=== PATIENT | female | born 2000 | race Caucasian/White ===

== ENCOUNTER 2023-11-16 02:51 | Emergency (ER) | payer MEDICAID ==
[2023-11-16 03:32] LABS: APPEARANCE,URINE CLEAR (CLEAR); BILIRUBIN,URINE NEGATIVE (NEGATIVE); COLOR,URINE YELLOW (YELLOW); GLUCOSE,URINE 500 mg/dL (NEGATIVE); KETONES,URINE TRACE mg/dL (NEGATIVE); LEUKOCYTE ESTERASE,URINE NEGATIVE (NEGATIVE); NITRITE,URINE NEGATIVE (NEGATIVE); OCCULT BLOOD,URINE TRACE-INTACT (NEGATIVE); PH,URINE 7.5 (5.0-8.0); PROTEIN,URINE NEGATIVE (NEGATIVE); UROBILINOGEN,URINE 0.2 EU/dL (0.2-1.0)
[2023-11-16 03:46] LABS: AMORPHOUS SEDIMENT,URINE FEW; BACTERIA,URINE FEW; EPITHELIAL CELLS,URINE FEW; MUCUS,URINE NOT SEEN; RBC,URINE 0-5 (0-5); WBC,URINE 0-5 (0-5)
== END 2023-11-16 04:22 | disposition home or self-care (01) ==
LOC: JP.ED 02:51
DX: O26.851 Spotting complicating pregnancy, first trimester (principal); O99.331 Smoking (tobacco) complicating pregnancy, first trimester; F17.210 Nicotine dependence, cigarettes, uncomplicated; O24.911 Unspecified diabetes mellitus in pregnancy, first trimester; Z79.4 Long term (current) use of insulin; Z3A.00 Weeks of gestation of pregnancy not specified; Z88.7 Allergy status to serum and vaccine
CPT/HCPCS: 81001; 81025; 87086; 99284

== ENCOUNTER 2023-11-16 21:32 | Emergency (ER) | payer MEDICAID ==
[2023-11-16 22:34] LABS: BASOPHILS ABSOLUTE AUTO 0.06 K/uL (0.00-0.10); BASOPHILS PERCENT AUTO 0.8 % (0.1-1.3); EOSINOPHILS ABSOLUTE AUTO 0.17 K/uL (0.00-0.40); EOSINOPHILS PERCENT AUTO 2.2 % (0.0-5.4); HEMATOCRIT 40.4 % (34.3-46.0); HEMOGLOBIN 13.8 g/dL (11.2-15.5); IMMATURE GRAN PERCENT AUTO 0.1 % (0.0-0.7); LYMPHOCYTES PERCENT AUTO 28.3 % (11.4-47.7); MEAN CORPUSCULAR HEMOGLOBIN 29.1 pg (31.6-35.5); MEAN CORPUSCULAR HGB CONC 34.2 g/dL (31.6-35.5); MEAN CORPUSCULAR VOLUME 85.1 fL (81.4-99.0); MONOCYTES ABSOLUTE AUTO 0.35 K/uL (0.20-0.90); MONOCYTES PERCENT AUTO 4.5 % (3.3-12.6); NEUTROPHILS ABSOLUTE AUTO 4.99 K/uL (1.0-7.6); NEUTROPHILS PERCENT AUTO 64.1 % (40.0-78.1); PLATELET COUNT,PLT 331 K/uL (130-375); RED BLOOD CELL COUNT 4.75 M/uL (3.77-5.24); WHITE BLOOD CELL COUNT,WBC 7.8 K/uL (3.2-11.0)
[2023-11-16 22:36] LABS: IMMATURE GRAN ABSOLUTE AUTO 0.01 K/uL (0.00-0.23)
== END 2023-11-16 23:34 | disposition home or self-care (01) ==
LOC: JP.ED 21:32
DX: O03.4 Incomplete spontaneous abortion without complication (principal); F17.210 Nicotine dependence, cigarettes, uncomplicated; Z88.7 Allergy status to serum and vaccine; Z79.4 Long term (current) use of insulin
CPT/HCPCS: 36415; 84702; 85025; 99284

== ENCOUNTER 2024-01-13 03:41 | Emergency (ER) | payer MEDICAID ==
[2024-01-13] MEDS: Benzonatate 100 MG Cap PO ONE (04:22)
[2024-01-13] MEDS: Ibuprofen 600 MG Tab PO ONE (04:23)
[2024-01-13] MEDS: Albuterol 0.083% 2.5 MG/3 ML Neb Soln NEB ONE (04:23)
[2024-01-13 04:25] LABS: BASOPHILS ABSOLUTE AUTO 0.04 K/uL (0.00-0.10); BASOPHILS PERCENT AUTO 0.8 % (0.1-1.3); EOSINOPHILS ABSOLUTE AUTO 0.23 K/uL (0.00-0.40); EOSINOPHILS PERCENT AUTO 4.7 % (0.0-5.4); HEMATOCRIT 36.8 % (34.3-46.0); HEMOGLOBIN 12.5 g/dL (11.2-15.5); IMMATURE GRAN ABSOLUTE AUTO 0.01 K/uL (0.00-0.23); IMMATURE GRAN PERCENT AUTO 0.2 % (0.0-0.7); LYMPHOCYTES ABSOLUTE AUTO 1.38 K/uL (0.8-3.3); LYMPHOCYTES PERCENT AUTO 28.5 % (11.4-47.7); MEAN CORPUSCULAR HEMOGLOBIN 29.5 pg (31.6-35.5); MEAN CORPUSCULAR VOLUME 86.8 fL (81.4-99.0); MONOCYTES ABSOLUTE AUTO 0.44 K/uL (0.20-0.90); MONOCYTES PERCENT AUTO 9.1 % (3.3-12.6); NEUTROPHILS ABSOLUTE AUTO 2.75 K/uL (1.0-7.6); NEUTROPHILS PERCENT AUTO 56.7 % (40.0-78.1); PLATELET COUNT,PLT 269 K/uL (130-375); RED BLOOD CELL COUNT 4.24 M/uL (3.77-5.24); WHITE BLOOD CELL COUNT,WBC 4.9 K/uL (3.2-11.0)
== END 2024-01-13 04:51 | disposition home or self-care (01) ==
LOC: JP.ED 03:41
DX: J98.01 Acute bronchospasm (principal); H66.93 Otitis media, unspecified, bilateral; B34.8 Other viral infections of unspecified site; E10.9 Type 1 diabetes mellitus without complications; F17.210 Nicotine dependence, cigarettes, uncomplicated; Z88.8 Allergy status to other drugs, medicaments and biological substances; Z79.4 Long term (current) use of insulin
CPT/HCPCS: 36415; 85025; 94640; 99285; A9270; 99283

== ENCOUNTER 2024-02-29 21:52 | Emergency (ER) | payer MEDICAID ==
[2024-02-29 22:44] LABS: BASOPHILS ABSOLUTE AUTO 0.08 K/uL (0.00-0.10); EOSINOPHILS ABSOLUTE AUTO 0.25 K/uL (0.00-0.40); HEMATOCRIT 34.7 % (34.3-46.0); HEMOGLOBIN 11.9 g/dL (11.2-15.5); IMMATURE GRAN PERCENT AUTO 0.2 % (0.0-0.7); LYMPHOCYTES ABSOLUTE AUTO 2.51 K/uL (0.8-3.3); LYMPHOCYTES PERCENT AUTO 29.8 % (11.4-47.7); MEAN CORPUSCULAR HGB CONC 34.3 g/dL (31.6-35.5); MEAN CORPUSCULAR VOLUME 87.4 fL (81.4-99.0); MONOCYTES ABSOLUTE AUTO 0.53 K/uL (0.20-0.90); MONOCYTES PERCENT AUTO 6.3 % (3.3-12.6); NEUTROPHILS ABSOLUTE AUTO 5.02 K/uL (1.0-7.6); NEUTROPHILS PERCENT AUTO 59.7 % (40.0-78.1); PLATELET COUNT,PLT 303 K/uL (130-375); RED BLOOD CELL COUNT 3.97 M/uL (3.77-5.24); WHITE BLOOD CELL COUNT,WBC 8.4 K/uL (3.2-11.0)
[2024-02-29 22:51] LABS: IMMATURE GRAN ABSOLUTE AUTO 0.02 K/uL (0.00-0.23)
[2024-02-29 22:55] LABS: CALCIUM 8.8 mg/dL (8.5-10.1); CREATININE 0.8 mg/dL (0.6-1.0); EST CRCL DRUG DOSING (CG) 102.39 mL/min; POTASSIUM,K 4.4 mmol/L (3.6-5.2)
[2024-02-29 23:02] LABS: ANION GAP 17.4 mmol/L (5.0-14.0)
== END 2024-02-29 23:37 | disposition home or self-care (01) ==
LOC: JP.ED 21:52
DX: T85.614A Breakdown (mechanical) of insulin pump, initial encounter (principal); E10.9 Type 1 diabetes mellitus without complications; Z79.4 Long term (current) use of insulin; Z88.7 Allergy status to serum and vaccine
CPT/HCPCS: 36415; 80048; 82009; 85025; 99283

== ENCOUNTER 2024-07-27 18:21 | Emergency (ER) | payer MEDICAID ==
[2024-07-27 18:59] LABS: BASOPHILS ABSOLUTE AUTO 0.05 K/uL (0.00-0.10); BASOPHILS PERCENT AUTO 0.7 % (0.1-1.3); EOSINOPHILS ABSOLUTE AUTO 0.19 K/uL (0.00-0.40); EOSINOPHILS PERCENT AUTO 2.6 % (0.0-5.4); HEMATOCRIT 30.6 % (34.3-46.0); HEMOGLOBIN 11.2 g/dL (11.2-15.5); IMMATURE GRAN PERCENT AUTO 0.3 % (0.0-0.7); LYMPHOCYTES ABSOLUTE AUTO 2.31 K/uL (0.8-3.3); LYMPHOCYTES PERCENT AUTO 31.7 % (11.4-47.7); MEAN CORPUSCULAR HEMOGLOBIN 30.2 pg (31.6-35.5); MEAN CORPUSCULAR HGB CONC 36.6 g/dL (31.6-35.5); MEAN CORPUSCULAR VOLUME 82.5 fL (81.4-99.0); MONOCYTES ABSOLUTE AUTO 0.37 K/uL (0.20-0.90); MONOCYTES PERCENT AUTO 5.1 % (3.3-12.6); NEUTROPHILS ABSOLUTE AUTO 4.35 K/uL (1.0-7.6); NEUTROPHILS PERCENT AUTO 59.6 % (40.0-78.1); PLATELET COUNT,PLT 277 K/uL (130-375); RED BLOOD CELL COUNT 3.71 M/uL (3.77-5.24); WHITE BLOOD CELL COUNT,WBC 7.3 K/uL (3.2-11.0)
[2024-07-27 19:02] LABS: IMMATURE GRAN ABSOLUTE AUTO 0.02 K/uL (0.00-0.23)
[2024-07-27] MEDS: Ondansetron 4 MG Tab.DIS PO ONE (19:04)
[2024-07-27 19:26] LABS: A/G RATIO 0.8 (1.2-2.2); ALANINE AMINOTRANSFERASE,ALT 23 U/L (12-78); ALBUMIN 3.2 g/dL (3.4-5.0); ALKALINE PHOSPHATASE 68 U/L (46-116); ANION GAP 11.1 mmol/L (5.0-14.0); ASPARTATE AMNIOTRANSFERASE,AST 16 U/L (15-37); BILIRUBIN TOTAL 0.3 mg/dL (0.2-1.0); BLOOD UREA NITROGEN,BUN 6 mg/dL (7-18); CARBON DIOXIDE,CO2 24 mmol/L (21-32); CHLORIDE,CL 105 mmol/L (100-108); CREATININE 0.8 mg/dL (0.6-1.0); EST CRCL DRUG DOSING (CG) 97.57 mL/min; ESTIMATED GFR 105 mL/min (>60); GLUCOSE RANDOM 133 mg/dL (74-106); SODIUM,NA 140 mmol/L (140-148)
[2024-07-27 19:41] LABS: BILIRUBIN,URINE NEGATIVE (NEGATIVE); COLOR,URINE YELLOW (YELLOW); GLUCOSE,URINE 100 mg/dL (NEGATIVE); KETONES,URINE NEGATIVE (NEGATIVE); LEUKOCYTE ESTERASE,URINE SMALL (NEGATIVE); NITRITE,URINE NEGATIVE (NEGATIVE); OCCULT BLOOD,URINE MODERATE (NEGATIVE); PROTEIN,URINE 100 mg/dL (NEGATIVE)
[2024-07-27 19:52] LABS: AMORPHOUS SEDIMENT,URINE NOT SEEN; APPEARANCE,URINE CLOUDY (CLEAR); BACTERIA,URINE MANY; EPITHELIAL CELLS,URINE FEW; MUCUS,URINE NOT SEEN
== END 2024-07-27 20:20 | disposition home or self-care (01) ==
LOC: JP.ED 18:21
DX: E86.0 Dehydration (principal); E10.649 Type 1 diabetes mellitus with hypoglycemia without coma; Z79.4 Long term (current) use of insulin; Z88.7 Allergy status to serum and vaccine
CPT/HCPCS: 36415; 80053; 81001; 82947; 85025; 87086; 99283; 99284; Q0162

== ENCOUNTER 2024-08-07 10:30 | Emergency (ER) | payer MEDICAID ==
[2024-08-07] MEDS: Acetaminophen 325 MG Tab PO ONE (12:37)
[2024-08-07 12:41] LABS: CORONAVIRUS COVID-19 NAA NEGATIVE (NEGATIVE); INFLUENZA A NAA NEGATIVE (NEGATIVE); INFLUENZA B NAA NEGATIVE (NEGATIVE); RESPIRATORY SYNCYTIAL VIR NAA NEGATIVE (NEGATIVE)
== END 2024-08-07 13:19 | disposition home or self-care (01) ==
LOC: JP.ED 10:30
DX: J06.9 Acute upper respiratory infection, unspecified (principal); E10.9 Type 1 diabetes mellitus without complications; Z79.899 Other long term (current) drug therapy; Z88.7 Allergy status to serum and vaccine
CPT/HCPCS: 0241U; 87651; 99284; A9270

== ENCOUNTER 2024-09-02 02:13 | Emergency (ER) | payer MEDICAID ==
[2024-09-02] MEDS: 50% Dextrose in Water 50 ML Syringe IVPUSH ONE (02:26)
[2024-09-02] MEDS: 50% Dextrose in Water 50 ML Syringe ONE (02:31)
[2024-09-02 02:48] LABS: BASOPHILS ABSOLUTE AUTO 0.05 K/uL (0.00-0.10); BASOPHILS PERCENT AUTO 0.7 % (0.1-1.3); EOSINOPHILS ABSOLUTE AUTO 0.25 K/uL (0.00-0.40); EOSINOPHILS PERCENT AUTO 3.3 % (0.0-5.4); HEMATOCRIT 29.7 % (34.3-46.0); HEMOGLOBIN 10.6 g/dL (11.2-15.5); IMMATURE GRAN PERCENT AUTO 0.1 % (0.0-0.7); LYMPHOCYTES ABSOLUTE AUTO 2.37 K/uL (0.8-3.3); MEAN CORPUSCULAR HEMOGLOBIN 29.7 pg (31.6-35.5); MEAN CORPUSCULAR HGB CONC 35.7 g/dL (31.6-35.5); MEAN CORPUSCULAR VOLUME 83.2 fL (81.4-99.0); MONOCYTES ABSOLUTE AUTO 0.44 K/uL (0.20-0.90); MONOCYTES PERCENT AUTO 5.8 % (3.3-12.6); NEUTROPHILS ABSOLUTE AUTO 4.53 K/uL (1.0-7.6); NEUTROPHILS PERCENT AUTO 59.1 % (40.0-78.1); PLATELET COUNT,PLT 240 K/uL (130-375); RED BLOOD CELL COUNT 3.57 M/uL (3.77-5.24); WHITE BLOOD CELL COUNT,WBC 7.7 K/uL (3.2-11.0)
[2024-09-02 02:50] LABS: IMMATURE GRAN ABSOLUTE AUTO 0.01 K/uL (0.00-0.23)
[2024-09-02 03:04] LABS: CALCIUM 9.1 mg/dL (8.5-10.1); CREATININE 0.6 mg/dL (0.6-1.0); EST CRCL DRUG DOSING (CG) 135.35 mL/min; POTASSIUM,K 3.5 mmol/L (3.6-5.2)
[2024-09-02 03:06] LABS: ANION GAP 15.5 mmol/L (5.0-14.0)
[2024-09-02] MEDS: Ibuprofen 400 MG Tab PO ONE (03:30)
== END 2024-09-02 05:25 | disposition home or self-care (01) ==
LOC: JP.ED 02:13
DX: O24.414 Gestational diabetes mellitus in pregnancy, insulin controlled (principal); E10.649 Type 1 diabetes mellitus with hypoglycemia without coma; Z3A.13 13 weeks gestation of pregnancy; Z86.16 Personal history of COVID-19; Z79.4 Long term (current) use of insulin; Z79.899 Other long term (current) drug therapy; Z88.7 Allergy status to serum and vaccine
CPT/HCPCS: 36415; 80048; 82947; 85025; 96374; 99285; A9270

== ENCOUNTER 2024-09-13 16:25 | Emergency (ER) | payer MEDICAID | END 2024-09-13 17:56 | disposition home or self-care (01) | LOC: JP.ED 16:25 | DX: E10.649 Type 1 diabetes mellitus with hypoglycemia without coma (principal); Z86.16 Personal history of COVID-19; Z88.7 Allergy status to serum and vaccine; Z79.4 Long term (current) use of insulin | CPT/HCPCS: 82947; 99284 ==

== ENCOUNTER 2024-10-21 21:44 | Emergency (ER) | payer MEDICAID ==
[2024-10-21 22:04] LABS: BASOPHILS ABSOLUTE AUTO 0.05 K/uL (0.00-0.10); BASOPHILS PERCENT AUTO 0.4 % (0.1-1.3); EOSINOPHILS ABSOLUTE AUTO 0.23 K/uL (0.00-0.40); HEMATOCRIT 30.5 % (34.3-46.0); HEMOGLOBIN 10.7 g/dL (11.2-15.5); IMMATURE GRAN ABSOLUTE AUTO 0.05 K/uL (0.00-0.23); IMMATURE GRAN PERCENT AUTO 0.4 % (0.0-0.7); LYMPHOCYTES ABSOLUTE AUTO 2.08 K/uL (0.8-3.3); LYMPHOCYTES PERCENT AUTO 18.5 % (11.4-47.7); MEAN CORPUSCULAR HEMOGLOBIN 30.6 pg (31.6-35.5); MEAN CORPUSCULAR HGB CONC 35.1 g/dL (31.6-35.5); MEAN CORPUSCULAR VOLUME 87.1 fL (81.4-99.0); MONOCYTES ABSOLUTE AUTO 0.51 K/uL (0.20-0.90); MONOCYTES PERCENT AUTO 4.5 % (3.3-12.6); NEUTROPHILS ABSOLUTE AUTO 8.31 K/uL (1.0-7.6); NEUTROPHILS PERCENT AUTO 74.2 % (40.0-78.1); PLATELET COUNT,PLT 255 K/uL (130-375); WHITE BLOOD CELL COUNT,WBC 11.2 K/uL (3.2-11.0)
[2024-10-21 22:18] LABS: CALCIUM 8.8 mg/dL (8.5-10.1); CREATININE 0.6 mg/dL (0.6-1.0); EST CRCL DRUG DOSING (CG) 135.35 mL/min; POTASSIUM,K 3.5 mmol/L (3.6-5.2)
[2024-10-21 22:20] LABS: ANION GAP 13.5 mmol/L (5.0-14.0)
[2024-10-21 23:11] LABS: APPEARANCE,URINE CLEAR (CLEAR); BILIRUBIN,URINE NEGATIVE (NEGATIVE); COLOR,URINE YELLOW (YELLOW); GLUCOSE,URINE 500 mg/dL (NEGATIVE); KETONES,URINE NEGATIVE (NEGATIVE); LEUKOCYTE ESTERASE,URINE NEGATIVE (NEGATIVE); NITRITE,URINE NEGATIVE (NEGATIVE); OCCULT BLOOD,URINE SMALL (NEGATIVE); PH,URINE 5.5 (5.0-8.0); PROTEIN,URINE 100 mg/dL (NEGATIVE); UROBILINOGEN,URINE 0.2 EU/dL (0.2-1.0)
[2024-10-21] MEDS: Prochlorperazine 10 MG/2 ML SDV IM ONE (23:11)
[2024-10-21] MEDS: diphenhydrAMINE 50 MG/ML SDV IM ONE (23:16)
== END 2024-10-21 23:45 | disposition home or self-care (01) ==
LOC: JP.ED 21:44
DX: E10.9 Type 1 diabetes mellitus without complications (principal); R10.2 Pelvic and perineal pain; Z86.16 Personal history of COVID-19; Z87.891 Personal history of nicotine dependence; Z88.7 Allergy status to serum and vaccine; Z91.048 Other nonmedicinal substance allergy status; Z79.4 Long term (current) use of insulin; Z79.899 Other long term (current) drug therapy
CPT/HCPCS: 36415; 80048; 81003; 85025; 87210; 96372; 99284; J0780

== ENCOUNTER 2024-10-23 17:17 | Emergency (ER) | payer MEDICAID ==
[2024-10-23] MEDS: 50% Dextrose in Water 50 ML Syringe IVPUSH ONE (17:50)
[2024-10-23 17:51] LABS: BASOPHILS ABSOLUTE AUTO 0.07 K/uL (0.00-0.10); BASOPHILS PERCENT AUTO 0.6 % (0.1-1.3); EOSINOPHILS ABSOLUTE AUTO 0.36 K/uL (0.00-0.40); EOSINOPHILS PERCENT AUTO 3.1 % (0.0-5.4); HEMATOCRIT 32.8 % (34.3-46.0); HEMOGLOBIN 11.5 g/dL (11.2-15.5); IMMATURE GRAN ABSOLUTE AUTO 0.06 K/uL (0.00-0.23); IMMATURE GRAN PERCENT AUTO 0.5 % (0.0-0.7); LYMPHOCYTES ABSOLUTE AUTO 2.81 K/uL (0.8-3.3); LYMPHOCYTES PERCENT AUTO 24.4 % (11.4-47.7); MEAN CORPUSCULAR HEMOGLOBIN 30.7 pg (31.6-35.5); MEAN CORPUSCULAR HGB CONC 35.1 g/dL (31.6-35.5); MEAN CORPUSCULAR VOLUME 87.5 fL (81.4-99.0); MONOCYTES ABSOLUTE AUTO 0.69 K/uL (0.20-0.90); NEUTROPHILS ABSOLUTE AUTO 7.51 K/uL (1.0-7.6); NEUTROPHILS PERCENT AUTO 65.4 % (40.0-78.1); PLATELET COUNT,PLT 340 K/uL (130-375); RED BLOOD CELL COUNT 3.75 M/uL (3.77-5.24); WHITE BLOOD CELL COUNT,WBC 11.5 K/uL (3.2-11.0)
[2024-10-23 17:57] LABS: CALCIUM 9.1 mg/dL (8.5-10.1); CREATININE 0.9 mg/dL (0.6-1.0); EST CRCL DRUG DOSING (CG) 90.23 mL/min; POTASSIUM,K 3.5 mmol/L (3.6-5.2)
[2024-10-23 17:59] LABS: ANION GAP 15.5 mmol/L (5.0-14.0)
[2024-10-23] MEDS: Insulin Isophane NPH, Human 100 Units/ML 10 ML Vial SUBCUT ONE (19:02)
[2024-10-23] MEDS: Insulin Isophane NPH, Human 100 Units/ML 3 ML Vial ONE (19:03)
[2024-10-24] MEDS ORDERED: Insulin Isophane NPH, Human 100 Units/ML 10 ML Vial SUBCUT ONE (18:34)
== END 2024-10-23 20:40 | disposition home or self-care (01) ==
LOC: JP.ED 17:17
DX: O24.419 Gestational diabetes mellitus in pregnancy, unspecified control (principal); E16.2 Hypoglycemia, unspecified; O99.332 Smoking (tobacco) complicating pregnancy, second trimester; F17.210 Nicotine dependence, cigarettes, uncomplicated; Z88.7 Allergy status to serum and vaccine; Z91.048 Other nonmedicinal substance allergy status; Z3A.20 20 weeks gestation of pregnancy
CPT/HCPCS: 36415; 80048; 82947; 85025; 96374; 99284; J1815

== ENCOUNTER 2024-12-12 20:45 | Emergency (ER) | payer MEDICAID | END 2024-12-12 22:31 | disposition home or self-care (01) | LOC: JP.ED 20:45 | DX: O99.513 Diseases of the respiratory system complicating pregnancy, third trimester (principal); J06.9 Acute upper respiratory infection, unspecified; O24.013 Pre-existing type 1 diabetes mellitus, in pregnancy, third trimester; E10.9 Type 1 diabetes mellitus without complications; Z3A.28 28 weeks gestation of pregnancy; Z91.048 Other nonmedicinal substance allergy status; Z88.7 Allergy status to serum and vaccine; Z79.4 Long term (current) use of insulin; Z79.899 Other long term (current) drug therapy | CPT/HCPCS: 87428-QW; 99284 ==

== ENCOUNTER 2024-12-13 14:23 | Emergency (ER) | payer MEDICAID ==
[2024-12-13 15:40] LABS: BASOPHILS ABSOLUTE AUTO 0.04 K/uL (0.00-0.10); BASOPHILS PERCENT AUTO 0.4 % (0.1-1.3); HEMATOCRIT 34.2 % (34.3-46.0); IMMATURE GRAN ABSOLUTE AUTO 0.06 K/uL (0.00-0.23); IMMATURE GRAN PERCENT AUTO 0.6 % (0.0-0.7); LYMPHOCYTES ABSOLUTE AUTO 1.35 K/uL (0.8-3.3); LYMPHOCYTES PERCENT AUTO 12.9 % (11.4-47.7); MEAN CORPUSCULAR HEMOGLOBIN 31.3 pg (31.6-35.5); MEAN CORPUSCULAR HGB CONC 35.1 g/dL (31.6-35.5); MEAN CORPUSCULAR VOLUME 89.1 fL (81.4-99.0); MONOCYTES ABSOLUTE AUTO 0.54 K/uL (0.20-0.90); MONOCYTES PERCENT AUTO 5.2 % (3.3-12.6); NEUTROPHILS ABSOLUTE AUTO 8.39 K/uL (1.0-7.6); NEUTROPHILS PERCENT AUTO 79.9 % (40.0-78.1); PLATELET COUNT,PLT 280 K/uL (130-375); RED BLOOD CELL COUNT 3.84 M/uL (3.77-5.24); WHITE BLOOD CELL COUNT,WBC 10.5 K/uL (3.2-11.0)
[2024-12-13] MEDS: Sodium Chloride 0.9% 1,000 ML IV ONE (15:46)
[2024-12-13 16:01] LABS: A/G RATIO 0.6 (1.2-2.2); ALANINE AMINOTRANSFERASE,ALT 29 U/L (12-78); ALBUMIN 2.8 g/dL (3.4-5.0); ALKALINE PHOSPHATASE 95 U/L (46-116); ASPARTATE AMNIOTRANSFERASE,AST 23 U/L (15-37); BILIRUBIN TOTAL 0.4 mg/dL (0.2-1.0); BLOOD UREA NITROGEN,BUN 9 mg/dL (7-18); CALCIUM 9.2 mg/dL (8.5-10.1); CARBON DIOXIDE,CO2 21 mmol/L (21-32); CHLORIDE,CL 100 mmol/L (100-108); EST CRCL DRUG DOSING (CG) 81.21 mL/min; ESTIMATED GFR 81 mL/min (>60); GLUCOSE RANDOM 270 mg/dL (74-106); POTASSIUM,K 3.5 mmol/L (3.6-5.2); PROTEIN TOTAL,TP 7.6 g/dL (6.4-8.2); SODIUM,NA 136 mmol/L (140-148)
[2024-12-13 16:11] LABS: ANION GAP 18.5 mmol/L (5.0-14.0)
[2024-12-13 16:18] LABS: CORONAVIRUS COVID-19 NAA NEGATIVE (NEGATIVE); INFLUENZA A NAA NEGATIVE (NEGATIVE); INFLUENZA B NAA NEGATIVE (NEGATIVE); RESPIRATORY SYNCYTIAL VIR NAA NEGATIVE (NEGATIVE)
[2024-12-13] MEDS: Codeine/guaiFENesin 10-100 MG/5 ML Syrup 5 ML Cup PO ONE (17:32)
[2024-12-13] MEDS: Benzonatate 100 MG Cap PO ONE (17:32)
== END 2024-12-13 17:41 | disposition home or self-care (01) ==
LOC: JP.ED 14:23
DX: E86.0 Dehydration (principal); J40 Bronchitis, not specified as acute or chronic; E10.9 Type 1 diabetes mellitus without complications; F17.210 Nicotine dependence, cigarettes, uncomplicated; Z91.048 Other nonmedicinal substance allergy status; Z79.4 Long term (current) use of insulin; Z79.82 Long term (current) use of aspirin; Z79.899 Other long term (current) drug therapy
CPT/HCPCS: 0241U; 36415; 80053; 85025; 96360; 99284; A9270; J7030

== ENCOUNTER 2024-12-17 17:17 | Emergency (ER) | payer MEDICAID ==
[2024-12-17 18:00] LABS: BASOPHILS PERCENT AUTO 0.3 % (0.1-1.3); EOSINOPHILS ABSOLUTE AUTO 0.16 K/uL (0.00-0.40); EOSINOPHILS PERCENT AUTO 2.5 % (0.0-5.4); HEMATOCRIT 33.8 % (34.3-46.0); HEMOGLOBIN 11.2 g/dL (11.2-15.5); IMMATURE GRAN ABSOLUTE AUTO 0.03 K/uL (0.00-0.23); IMMATURE GRAN PERCENT AUTO 0.5 % (0.0-0.7); LYMPHOCYTES ABSOLUTE AUTO 1.16 K/uL (0.8-3.3); LYMPHOCYTES PERCENT AUTO 18.1 % (11.4-47.7); MEAN CORPUSCULAR HEMOGLOBIN 30.9 pg (31.6-35.5); MEAN CORPUSCULAR HGB CONC 33.1 g/dL (31.6-35.5); MEAN CORPUSCULAR VOLUME 93.4 fL (81.4-99.0); MONOCYTES ABSOLUTE AUTO 0.44 K/uL (0.20-0.90); MONOCYTES PERCENT AUTO 6.9 % (3.3-12.6); NEUTROPHILS ABSOLUTE AUTO 4.61 K/uL (1.0-7.6); NEUTROPHILS PERCENT AUTO 71.7 % (40.0-78.1); PLATELET COUNT,PLT 223 K/uL (130-375); RED BLOOD CELL COUNT 3.62 M/uL (3.77-5.24); WHITE BLOOD CELL COUNT,WBC 6.4 K/uL (3.2-11.0)
[2024-12-17] MEDS: Sodium Chloride 0.9% 1,000 ML IV ONE ×2 (18:00→19:05)
[2024-12-17 18:01] LABS: BASOPHILS ABSOLUTE AUTO 0.02 K/uL (0.00-0.10)
[2024-12-17 18:03] LABS: APPEARANCE,URINE CLEAR (CLEAR); BILIRUBIN,URINE NEGATIVE (NEGATIVE); COLOR,URINE YELLOW (YELLOW); GLUCOSE,URINE 500 mg/dL (NEGATIVE); KETONES,URINE 80 mg/dL (NEGATIVE); LEUKOCYTE ESTERASE,URINE NEGATIVE (NEGATIVE); NITRITE,URINE NEGATIVE (NEGATIVE); OCCULT BLOOD,URINE TRACE-INTACT (NEGATIVE); PROTEIN,URINE NEGATIVE (NEGATIVE); UROBILINOGEN,URINE 0.2 EU/dL (0.2-1.0)
[2024-12-17 18:13] LABS: AMORPHOUS SEDIMENT,URINE NOT SEEN; BACTERIA,URINE RARE; EPITHELIAL CELLS,URINE FEW; MUCUS,URINE NOT SEEN; RBC,URINE 0-5 (0-5); WBC,URINE 0-5 (0-5)
[2024-12-17 18:22] LABS: A/G RATIO 0.6 (1.2-2.2); ALANINE AMINOTRANSFERASE,ALT 69 U/L (12-78); ALBUMIN 2.9 g/dL (3.4-5.0); ALKALINE PHOSPHATASE 113 U/L (46-116); ASPARTATE AMNIOTRANSFERASE,AST 101 U/L (15-37); BILIRUBIN TOTAL 0.6 mg/dL (0.2-1.0); BLOOD UREA NITROGEN,BUN 7 mg/dL (7-18); CALCIUM 8.4 mg/dL (8.5-10.1); CARBON DIOXIDE,CO2 22 mmol/L (21-32); CHLORIDE,CL 95 mmol/L (100-108); CREATININE 0.9 mg/dL (0.6-1.0); EST CRCL DRUG DOSING (CG) 86.73 mL/min; ESTIMATED GFR 92 mL/min (>60); POTASSIUM,K 3.4 mmol/L (3.6-5.2); PROTEIN TOTAL,TP 7.4 g/dL (6.4-8.2); SODIUM,NA 131 mmol/L (140-148)
[2024-12-17 18:24] LABS: ANION GAP 17.4 mmol/L (5.0-14.0); GLUCOSE RANDOM 532 mg/dL (74-106)
[2024-12-17] MEDS: Cyclobenzaprine 10 MG Tab PO ONE (18:26)
[2024-12-17] MEDS: Acetaminophen 500 MG Tab PO ONE (18:26)
[2024-12-17] MEDS ORDERED: 50% Dextrose in Water 50 ML Syringe IVPUSH PRN (18:29)
[2024-12-17] MEDS ORDERED: Glucagon,Human Recombinant 1 MG Vial IM PRN (18:29)
[2024-12-17] MEDS: Terbutaline 1 MG/ML SDV SUBCUT ONE (18:35)
[2024-12-17] MEDS: Insulin Regular, Human 100 Units/ML 3 ML Vial IVPUSH ONE (18:40)
[2024-12-17] MEDS: cefTRIAXone 1 GM in Sodium Chloride 0.9% 50 ML IV ONE (19:07)
== END 2024-12-17 19:20 ==
LOC: JP.ED 17:17
DX: O99.283 Endocrine, nutritional and metabolic diseases complicating pregnancy, third trimester (principal); O60.03 Preterm labor without delivery, third trimester; O24.913 Unspecified diabetes mellitus in pregnancy, third trimester; E10.65 Type 1 diabetes mellitus with hyperglycemia; Z88.7 Allergy status to serum and vaccine; Z91.048 Other nonmedicinal substance allergy status; Z79.4 Long term (current) use of insulin; Z79.899 Other long term (current) drug therapy; Z3A.28 28 weeks gestation of pregnancy
CPT/HCPCS: 36415; 80053; 81001; 82731; 82947; 85025; 85379; 96360; 96361; 96372; 99285; J1815; J7030

== ENCOUNTER 2024-12-19 17:37 | Emergency (ER) | payer MEDICAID ==
[2024-12-19 18:12] LABS: BASOPHILS PERCENT AUTO 0.2 % (0.1-1.3); EOSINOPHILS ABSOLUTE AUTO 0.22 K/uL (0.00-0.40); EOSINOPHILS PERCENT AUTO 2.3 % (0.0-5.4); HEMATOCRIT 33.2 % (34.3-46.0); HEMOGLOBIN 11.3 g/dL (11.2-15.5); IMMATURE GRAN ABSOLUTE AUTO 0.03 K/uL (0.00-0.23); IMMATURE GRAN PERCENT AUTO 0.3 % (0.0-0.7); LYMPHOCYTES ABSOLUTE AUTO 1.67 K/uL (0.8-3.3); LYMPHOCYTES PERCENT AUTO 17.5 % (11.4-47.7); MEAN CORPUSCULAR HEMOGLOBIN 31.3 pg (31.6-35.5); MONOCYTES ABSOLUTE AUTO 0.55 K/uL (0.20-0.90); MONOCYTES PERCENT AUTO 5.7 % (3.3-12.6); NEUTROPHILS ABSOLUTE AUTO 7.08 K/uL (1.0-7.6); PLATELET COUNT,PLT 268 K/uL (130-375); RED BLOOD CELL COUNT 3.61 M/uL (3.77-5.24); WHITE BLOOD CELL COUNT,WBC 9.6 K/uL (3.2-11.0)
[2024-12-19] MEDS: Sodium Chloride 0.9% 1,000 ML IV SCH (18:15)
[2024-12-19 18:17] LABS: BASOPHILS ABSOLUTE AUTO 0.02 K/uL (0.00-0.10)
[2024-12-19 18:29] LABS: INR 0.9
[2024-12-19 18:34] LABS: A/G RATIO 0.6 (1.2-2.2); ALANINE AMINOTRANSFERASE,ALT 69 U/L (12-78); ALBUMIN 2.6 g/dL (3.4-5.0); ALKALINE PHOSPHATASE 150 U/L (46-116); ASPARTATE AMNIOTRANSFERASE,AST 66 U/L (15-37); BILIRUBIN TOTAL 0.3 mg/dL (0.2-1.0); BLOOD UREA NITROGEN,BUN 4 mg/dL (7-18); CALCIUM 8.6 mg/dL (8.5-10.1); CARBON DIOXIDE,CO2 22 mmol/L (21-32); CHLORIDE,CL 104 mmol/L (100-108); CREATININE 0.6 mg/dL (0.6-1.0); ESTIMATED GFR 128 mL/min (>60); GLUCOSE RANDOM 200 mg/dL (74-106); POTASSIUM,K 3.7 mmol/L (3.6-5.2); PROTEIN TOTAL,TP 7.1 g/dL (6.4-8.2); SODIUM,NA 138 mmol/L (140-148)
[2024-12-19 18:35] LABS: ANION GAP 15.7 mmol/L (5.0-14.0)
[2024-12-19] MEDS ORDERED: Naloxone 0.4 MG/ML SDV IVPUSH PRN (19:52)
[2024-12-19] MEDS: fentaNYL 100 MCG/2 ML SDV IVPUSH ONE (20:14)
[2024-12-19] MEDS ORDERED: Sodium Chloride 0.9% 1,000 ML IV SCH (20:15)
[2024-12-19] MEDS: Ondansetron 4 MG/2 ML SDV IVPUSH ONE (20:30)
[2024-12-19] MEDS: Terbutaline 1 MG/ML SDV SUBCUT ONE (20:44)
== END 2024-12-19 20:58 | disposition other institution (70) ==
LOC: JP.ED 17:37
DX: O47.03 False labor before 37 completed weeks of gestation, third trimester (principal); O24.013 Pre-existing type 1 diabetes mellitus, in pregnancy, third trimester; E10.9 Type 1 diabetes mellitus without complications; Z91.048 Other nonmedicinal substance allergy status; Z88.7 Allergy status to serum and vaccine; Z79.4 Long term (current) use of insulin; Z86.16 Personal history of COVID-19; Z3A.28 28 weeks gestation of pregnancy
CPT/HCPCS: 36415; 80053; 82009; 84702; 85025; 85610; 86850; 86900; 86901; 96361; 96372; 96374; 96375; 99285; J2405; J3010

== ENCOUNTER 2025-03-01 17:54 | Emergency (ER) | payer MEDICAID ==
[2025-03-01 18:35] LABS: APPEARANCE,URINE CLEAR (CLEAR); BILIRUBIN,URINE NEGATIVE (NEGATIVE); COLOR,URINE YELLOW (YELLOW); GLUCOSE,URINE 500 mg/dL (NEGATIVE); KETONES,URINE TRACE mg/dL (NEGATIVE); LEUKOCYTE ESTERASE,URINE NEGATIVE (NEGATIVE); NITRITE,URINE NEGATIVE (NEGATIVE); OCCULT BLOOD,URINE NEGATIVE (NEGATIVE); PH,URINE 5.5 (5.0-8.0); PROTEIN,URINE NEGATIVE (NEGATIVE); UROBILINOGEN,URINE 0.2 EU/dL (0.2-1.0)
[2025-03-01 18:41] LABS: BASOPHILS ABSOLUTE AUTO 0.08 K/uL (0.00-0.10); BASOPHILS PERCENT AUTO 1.6 % (0.1-1.3); EOSINOPHILS ABSOLUTE AUTO 0.36 K/uL (0.00-0.40); EOSINOPHILS PERCENT AUTO 7.3 % (0.0-5.4); HEMATOCRIT 34.5 % (34.3-46.0); HEMOGLOBIN 11.2 g/dL (11.2-15.5); IMMATURE GRAN PERCENT AUTO 0.2 % (0.0-0.7); LYMPHOCYTES ABSOLUTE AUTO 2.09 K/uL (0.8-3.3); LYMPHOCYTES PERCENT AUTO 42.7 % (11.4-47.7); MEAN CORPUSCULAR HEMOGLOBIN 30.9 pg (31.6-35.5); MEAN CORPUSCULAR HGB CONC 32.5 g/dL (31.6-35.5); MONOCYTES ABSOLUTE AUTO 0.23 K/uL (0.20-0.90); MONOCYTES PERCENT AUTO 4.7 % (3.3-12.6); NEUTROPHILS ABSOLUTE AUTO 2.13 K/uL (1.0-7.6); NEUTROPHILS PERCENT AUTO 43.5 % (40.0-78.1); PLATELET COUNT,PLT 334 K/uL (130-375); RED BLOOD CELL COUNT 3.63 M/uL (3.77-5.24); WHITE BLOOD CELL COUNT,WBC 4.9 K/uL (3.2-11.0)
[2025-03-01] MEDS: Sodium Chloride 0.9% 1,000 ML IV SCH (18:42)
[2025-03-01 18:43] LABS: IMMATURE GRAN ABSOLUTE AUTO 0.01 K/uL (0.00-0.23)
[2025-03-01 19:01] LABS: CREATININE 1.5 mg/dL (0.6-1.0); EST CRCL DRUG DOSING (CG) 47.47 mL/min; POTASSIUM,K 4.4 mmol/L (3.6-5.2)
[2025-03-01 19:02] LABS: ANION GAP 21.4 mmol/L (5.0-14.0)
[2025-03-01] MEDS ORDERED: 50% Dextrose in Water 50 ML Syringe IVPUSH PRN ×3 (19:07→20:01)
[2025-03-01] MEDS ORDERED: Glucagon,Human Recombinant 1 MG Vial IM PRN ×3 (19:07→20:01)
[2025-03-01] MEDS: Insulin Regular, Human 100 Units/ML 10 ML Vial IVPUSH ONE (19:16)
[2025-03-01] MEDS: Insulin Glargine,Human Rec. Analog 100 Units/ML 3 ML Pen SUBCUT ONE (20:12)
[2025-03-01 20:15] LABS: ANION GAP 20.2 mmol/L (5.0-14.0); CALCIUM 8.9 mg/dL (8.5-10.1); CREATININE 1.3 mg/dL (0.6-1.0); EST CRCL DRUG DOSING (CG) 54.78 mL/min; POTASSIUM,K 3.2 mmol/L (3.6-5.2)
[2025-03-02] MEDS ORDERED: Insulin Glargine,Human Rec. Analog 100 Units/ML 3 ML Pen SUBCUT ONE (19:56)
== END 2025-03-01 20:35 | disposition home or self-care (01) ==
LOC: JP.ED 17:54
DX: E10.65 Type 1 diabetes mellitus with hyperglycemia (principal); F17.200 Nicotine dependence, unspecified, uncomplicated; Z88.7 Allergy status to serum and vaccine; Z91.048 Other nonmedicinal substance allergy status; Z79.4 Long term (current) use of insulin; Z79.899 Other long term (current) drug therapy
CPT/HCPCS: 36415; 80048; 81003; 81025; 82009; 85025; 96360; 99284; J1815; J7030; A9270-GY

== ENCOUNTER 2025-04-30 12:03 | Emergency (ER) | payer MEDICAID ==
[2025-04-30] MEDS: Sodium Chloride 0.9% 1,000 ML IV SCH (12:38)
[2025-04-30] MEDS: diphenhydrAMINE 50 MG/ML SDV IVPUSH ONE (12:39)
[2025-04-30] MEDS: Prochlorperazine 10 MG/2 ML SDV IVPUSH ONE (12:39)
[2025-04-30] MEDS: Ketorolac 30 MG/ML SDV IVPUSH ONE (13:16)
[2025-04-30] MEDS: Dexamethasone 4 MG/ML SDV IVPUSH ONE (14:15)
== END 2025-04-30 14:38 | disposition home or self-care (01) ==
LOC: JP.ED 12:03
DX: G43.909 Migraine, unspecified, not intractable, without status migrainosus (principal); E10.9 Type 1 diabetes mellitus without complications; F17.200 Nicotine dependence, unspecified, uncomplicated; Z88.7 Allergy status to serum and vaccine; Z91.048 Other nonmedicinal substance allergy status; Z79.4 Long term (current) use of insulin; Z79.899 Other long term (current) drug therapy; Z86.16 Personal history of COVID-19
CPT/HCPCS: 96361; 96374; 96375; 99283; J0780; J1100; J1200; J1885; J7030

== ENCOUNTER 2025-06-29 23:59 | Emergency (ER) | payer MEDICAID ==
[2025-06-30] MEDS ORDERED: Sodium Chloride 0.9% 10 ML Syringe FLUSH PRN (00:05)
[2025-06-30 00:16] LABS: BASOPHILS ABSOLUTE AUTO 0.07 K/uL (0.00-0.10); BASOPHILS PERCENT AUTO 1.3 % (0.1-1.3); EOSINOPHILS ABSOLUTE AUTO 0.21 K/uL (0.00-0.40); EOSINOPHILS PERCENT AUTO 3.8 % (0.0-5.4); IMMATURE GRAN PERCENT AUTO 0.4 % (0.0-0.7); LYMPHOCYTES ABSOLUTE AUTO 2.42 K/uL (0.8-3.3); LYMPHOCYTES PERCENT AUTO 43.9 % (11.4-47.7); MONOCYTES ABSOLUTE AUTO 0.30 K/uL (0.20-0.90); MONOCYTES PERCENT AUTO 5.4 % (3.3-12.6); NEUTROPHILS ABSOLUTE AUTO 2.49 K/uL (1.0-7.6); NEUTROPHILS PERCENT AUTO 45.2 % (40.0-78.1); PLATELET COUNT,PLT 313 K/uL (130-375); RED BLOOD CELL COUNT 3.95 M/uL (3.77-5.24); WHITE BLOOD CELL COUNT,WBC 5.5 K/uL (3.2-11.0)
[2025-06-30 00:36] LABS: A/G RATIO 0.8 (1.2-2.2); ALANINE AMINOTRANSFERASE,ALT 36 U/L (12-78); ASPARTATE AMNIOTRANSFERASE,AST 30 U/L (15-37); BILIRUBIN TOTAL 0.3 mg/dL (0.2-1.0); BLOOD UREA NITROGEN,BUN 9 mg/dL (7-18); CARBON DIOXIDE,CO2 26 mmol/L (21-32); CHLORIDE,CL 91 mmol/L (100-108); CREATININE 0.9 mg/dL (0.6-1.0); EST CRCL DRUG DOSING (CG) 85.98 mL/min; ESTIMATED GFR 91 mL/min (>60); POTASSIUM,K 4.4 mmol/L (3.6-5.2); PROTEIN TOTAL,TP 7.6 g/dL (6.4-8.2); SODIUM,NA 126 mmol/L (140-148)
[2025-06-30 00:39] LABS: IMMATURE GRAN ABSOLUTE AUTO 0.02 K/uL (0.00-0.23)
[2025-06-30 00:41] LABS: GLUCOSE RANDOM 705 mg/dL (74-106)
[2025-06-30] MEDS ORDERED: 50% Dextrose in Water 50 ML Syringe IVPUSH PRN (00:49)
[2025-06-30] MEDS: Insulin Regular, Human 100 Units/ML 10 ML Vial SUBCUT ONE (00:55)
[2025-06-30 01:35] LABS: APPEARANCE,URINE CLEAR (CLEAR); GLUCOSE,URINE 500 mg/dL (NEGATIVE); OCCULT BLOOD,URINE LARGE (NEGATIVE)
[2025-06-30 01:41] LABS: AMPHETAMINES SCREEN, URINE NEGATIVE (NEGATIVE); METHADONE SCREEN, URINE NEGATIVE (NEGATIVE); METHAMPHETAMINES SCREEN, URINE NEGATIVE (NEGATIVE); OXYCODONE SCREEN,URINE NEGATIVE (NEGATIVE); PROPOXYPHENE SCREEN,URINE NEGATIVE (NEGATIVE); SQUAMOUS EPITHELIAL CELLS,UR NOT SEEN /HPF; THC SCREEN,URINE 50 NG/ML NEGATIVE (NEGATIVE); UROTHELIAL CELLS,URINE NOT SEEN /HPF
== END 2025-06-30 02:23 | disposition left against medical advice (07) ==
LOC: JP.ED 23:59
DX: R10.31 Right lower quadrant pain (principal); E10.65 Type 1 diabetes mellitus with hyperglycemia; Z88.8 Allergy status to other drugs, medicaments and biological substances; Z79.4 Long term (current) use of insulin; Z86.16 Personal history of COVID-19
CPT/HCPCS: 36415; 76830; 76830-26; 76857; 80053; 80305-QW; 81001; 81025; 82947; 85025; 86140; 93976; 93976-26; 99284; 99285; A9270-GY

== ENCOUNTER 2025-09-24 11:41 | Emergency (ER) | payer MEDICAID ==
[2025-09-24 12:42] LABS: BASOPHILS ABSOLUTE AUTO 0.07 K/uL (0.00-0.10); BASOPHILS PERCENT AUTO 1.3 % (0.1-1.3); EOSINOPHILS ABSOLUTE AUTO 0.29 K/uL (0.00-0.40); EOSINOPHILS PERCENT AUTO 5.3 % (0.0-5.4); IMMATURE GRAN PERCENT AUTO 0.2 % (0.0-0.7); LYMPHOCYTES ABSOLUTE AUTO 2.52 K/uL (0.8-3.3); LYMPHOCYTES PERCENT AUTO 46.2 % (11.4-47.7); MONOCYTES ABSOLUTE AUTO 0.29 K/uL (0.20-0.90); MONOCYTES PERCENT AUTO 5.3 % (3.3-12.6); NEUTROPHILS ABSOLUTE AUTO 2.28 K/uL (1.0-7.6); NEUTROPHILS PERCENT AUTO 41.7 % (40.0-78.1); PLATELET COUNT,PLT 284 K/uL (130-375); RED BLOOD CELL COUNT 3.89 M/uL (3.77-5.24); WHITE BLOOD CELL COUNT,WBC 5.5 K/uL (3.2-11.0)
[2025-09-24 12:47] LABS: IMMATURE GRAN ABSOLUTE AUTO 0.01 K/uL (0.00-0.23)
[2025-09-24 12:59] LABS: A/G RATIO 0.8 (1.2-2.2); ALANINE AMINOTRANSFERASE,ALT 32 U/L (12-78); ASPARTATE AMNIOTRANSFERASE,AST 19 U/L (15-37); BILIRUBIN TOTAL 0.3 mg/dL (0.2-1.0); BLOOD UREA NITROGEN,BUN 10 mg/dL (7-18); CARBON DIOXIDE,CO2 29 mmol/L (21-32); CHLORIDE,CL 101 mmol/L (100-108); CREATININE 0.6 mg/dL (0.6-1.0); EST CRCL DRUG DOSING (CG) 128.98 mL/min; ESTIMATED GFR 128 mL/min (>60); GLUCOSE RANDOM 233 mg/dL (74-106); POTASSIUM,K 3.6 mmol/L (3.6-5.2); PROTEIN TOTAL,TP 6.2 g/dL (6.4-8.2); SODIUM,NA 136 mmol/L (140-148)
== END 2025-09-24 13:41 | disposition home or self-care (01) ==
LOC: JP.ED 11:41
DX: K59.1 Functional diarrhea (principal); E10.65 Type 1 diabetes mellitus with hyperglycemia; Z86.16 Personal history of COVID-19; Z88.7 Allergy status to serum and vaccine; Z91.048 Other nonmedicinal substance allergy status; Z79.4 Long term (current) use of insulin; Z79.899 Other long term (current) drug therapy
CPT/HCPCS: 36415; 80053; 85025; 99284